=== PATIENT | male | born 1975 | race Caucasian/White ===

== ENCOUNTER 2016-09-06 03:59 | Emergency (ER) | payer SELFPAY | END 2016-09-06 06:50 | disposition home or self-care (01) | LOC: FER 03:59 | DX: S01.81XA Laceration without foreign body of other part of head, initial encounter (principal); F17.210 Nicotine dependence, cigarettes, uncomplicated; W08.XXXA Fall from other furniture, initial encounter; Y92.009 Unspecified place in unspecified non-institutional (private) residence as the place of occurrence of the external cause | CPT/HCPCS: 70450 ==

== ENCOUNTER 2016-11-16 06:30 | Emergency (ER) | payer MEDICARE | END 2016-11-16 07:22 | disposition home or self-care (01) | LOC: FER 06:30 | DX: S01.81XA Laceration without foreign body of other part of head, initial encounter (principal); I10 Essential (primary) hypertension; F17.210 Nicotine dependence, cigarettes, uncomplicated; Z87.820 Personal history of traumatic brain injury; W19.XXXA Unspecified fall, initial encounter ==

== ENCOUNTER 2016-12-03 02:58 | Emergency (ER) | payer MEDICARE ==
[2016-12-03 04:42] LABS: BILIRUBIN 1+ mg/dL (NEGATIVE); BLOOD NEGATIVE Ery/uL (NEGATIVE); CLARITY CLEAR (CLEAR); COLOR YELLOW (YELLOW); GLUCOSE (U) NORMAL (NORMAL); KETONE (U) TRACE mg/dL (NEGATIVE); LEUKOCYTES NEGATIVE Leu/uL (NEGATIVE); NITRITE NEGATIVE (NEGATIVE); PROTEIN NEGATIVE (NEGATIVE); SPECIFIC GRAVITY 1.015 (1.001-1.030); UROBILINOGEN 0.2 mg/dL (0.2-1.0); pH 6.5 (5.0-9.0)
[2016-12-03 05:30] LABS: BASOPHIL 0.2 % (0-2); EOSINOPHIL 2.5 % (0-5); HCT 40.9 % (42.0-52.0); HGB 14.8 g/dl (13.2-18.0); LYMPHOCYTE 19.9 % (15-48); MCH 32.7 pg (25.0-31.0); MCHC 36.2 g/dL (32.0-36.0); MCV 90.5 fL (78.0-100.0); MONOCYTE 7.2 % (0-12); MPV 10.4 fL (6.0-9.5); NEUTROPHIL 70.2 % (41-80); PLT 230 K/uL (150-400); RBC 4.52 M/uL (4.70-6.00); RDW 12.3 % (11.5-14.0); WBC 9.8 K/uL (4.0-10.5)
[2016-12-03 05:43] LABS: ALBUMIN 3.9 g/dL (3.5-5.0); BILIRUBIN - TOTAL 0.8 mg/dL (0.1-1.0); CREATININE 0.6 mg/dL (0.7-1.2); GLOBULIN (CALCULATION) 2.7 g/dL (2.2-4.2); POTASSIUM 3.2 mmol/L (3.5-5.1); TOTAL PROTEIN 6.6 g/dL (6.4-8.3)
== END 2016-12-03 06:17 | disposition home or self-care (01) ==
LOC: FER 02:58
PROVIDERS: Emergency Medicine
DX: I10 Essential (primary) hypertension (principal); F41.9 Anxiety disorder, unspecified; F17.200 Nicotine dependence, unspecified, uncomplicated; Z79.899 Other long term (current) drug therapy
CPT/HCPCS: 36415; 80053; 81003; 82150; 83690; 85025; J1885

== ENCOUNTER 2016-12-05 03:29 | Emergency (ER) | payer MEDICARE ==
[2016-12-05 03:50] LABS: BASOPHIL 0.5 % (0-2); EOSINOPHIL 3.8 % (0-5); HCT 42.2 % (42.0-52.0); HGB 15.2 g/dl (13.2-18.0); MCH 32.5 pg (25.0-31.0); MCV 90.4 fL (78.0-100.0); MONOCYTE 5.1 % (0-12); MPV 10.3 fL (6.0-9.5); NEUTROPHIL 54.6 % (41-80); PLT 272 K/uL (150-400); RBC 4.67 M/uL (4.70-6.00); RDW 12.4 % (11.5-14.0); WBC 8.2 K/uL (4.0-10.5)
[2016-12-05 04:02] LABS: ACETAMINOPHEN (TYLENOL) < 5.0 ug/mL (10.0-30.0); SALICYLATE < 6 ug/mL (0-300)
[2016-12-05 04:03] LABS: ALBUMIN 4.3 g/dL (3.5-5.0); BILIRUBIN - TOTAL 0.4 mg/dL (0.1-1.0); CREATININE 0.8 mg/dL (0.7-1.2); GLOBULIN (CALCULATION) 2.8 g/dL (2.2-4.2); POTASSIUM 3.7 mmol/L (3.5-5.1); TOTAL PROTEIN 7.1 g/dL (6.4-8.3)
[2016-12-05 04:09] LABS: ALCOHOL (ETOH) MEDICAL 238 mg/dL
[2016-12-05 05:10] LABS: BILIRUBIN NEGATIVE (NEGATIVE); BLOOD NEGATIVE Ery/uL (NEGATIVE); CLARITY CLEAR (CLEAR); COLOR YELLOW (YELLOW); GLUCOSE (U) NORMAL (NORMAL); KETONE (U) NEGATIVE (NEGATIVE); LEUKOCYTES NEGATIVE Leu/uL (NEGATIVE); NITRITE NEGATIVE (NEGATIVE); PROTEIN NEGATIVE (NEGATIVE); SPECIFIC GRAVITY <=1.005 (1.001-1.030); UROBILINOGEN 0.2 mg/dL (0.2-1.0)
[2016-12-05 05:15] LABS: AMPHETAMINES NEGATIVE (NEGATIVE); BARBITURATES NEGATIVE (NEGATIVE); BENZODIAZEPINES NEGATIVE (NEGATIVE); COCAINE NEGATIVE (NEGATIVE); MARIJUANA (THC) NEGATIVE (NEGATIVE); METHADONE NEGATIVE (NEGATIVE); TRICYCLIC ANTIDEPRESSANT NEGATIVE (NEGATIVE)
== END 2016-12-05 09:52 ==
LOC: FER 03:29
PROVIDERS: Emergency Medicine
DX: F10.229 Alcohol dependence with intoxication, unspecified (principal); I10 Essential (primary) hypertension; Z79.899 Other long term (current) drug therapy; Y90.7 Blood alcohol level of 200-239 mg/100 ml
CPT/HCPCS: 36415; 80053; 80305; 81003; 85025; G0480

== ENCOUNTER 2020-12-23 23:13 | Emergency (ER) | payer MEDICARE ==
[~2020-12-23 23:13] MED LIST: BENTYL10 MG PO; GLUCOTROL10 MG PO; HUMULIN R100 UNIT/2 SC; LIBRIUM25 MG PO; METFORMIN HCL500 MG PO; MOTRIN600 MG PO; NAPROXEN500 MG PO; OXYCODONE-ACET1 EAC1 PO; PREDNISONE 20MG20 MG PO; PRINIVIL10 MG PO; PRINIVIL20 MG PO; PROZAC20 MG PO; RANITIDINE HCL150 M1 PO; VENTOLIN HFA IN18 GM INH; XANAX0.5 MG PO; XARELTO10 MG PO; ZOFRAN4 MG PO; ZPAK PO
[2020-12-24 00:22] LABS: BASOPHIL 0.3 % (0-2); EOSINOPHIL 1.3 % (0-5); HCT 41.2 % (42.0-52.0); HGB 14.3 g/dl (13.2-18.0); LYMPHOCYTE 29.9 % (15-48); MCH 32.4 pg (25.0-31.0); MCHC 34.7 g/dL (32.0-36.0); MCV 93.2 fL (78.0-100.0); MONOCYTE 4.9 % (0-12); MPV 11.3 fL (6.0-9.5); NEUTROPHIL 63.2 % (41-80); NRBC 0; PLT 233 K/uL (150-400); RBC 4.42 M/uL (4.70-6.00); RDW 13.7 % (11.5-14.0); WBC 7.8 K/uL (4.0-10.5)
[2020-12-24 00:24] LABS: ALBUMIN 3.9 g/dL (3.4-5.0); ALKALINE PHOSHATASE 81 U/L (46-116); ALT 62 U/L (16-63); AMYLASE 46 U/L (25-115); AST 33 U/L (15-37); BILIRUBIN - TOTAL 0.6 mg/dL (0.2-1.0); BUN 14 mg/dL (7-18); BUN/CREAT RATIO (CALC) 25.5 RATIO; CHLORIDE 101 mmol/L (98-107); CO2 (BICARBONATE) 27 mmol/L (21-32); CREATININE 0.55 mg/dL (0.67-1.17); GLOBULIN (CALCULATION) 3.4 g/dL; GLUCOSE 133 mg/dL (74-106); LIPASE 184 U/L (73-393); POTASSIUM 3.8 mmol/L (3.5-5.1); TOTAL PROTEIN 7.3 g/dL (6.4-8.2)
[2020-12-24 00:27] LABS: BILIRUBIN NEGATIVE (NEGATIVE); BLOOD NEGATIVE Ery/uL (NEGATIVE); CLARITY CLEAR (CLEAR); COLOR YELLOW (YELLOW); GLUCOSE (U) 3+ mg/dL (NORMAL); LEUKOCYTES NEGATIVE Leu/uL (NEGATIVE); NITRITE NEGATIVE (NEGATIVE); PROTEIN NEGATIVE (NEGATIVE); UROBILINOGEN 0.2 mg/dL (0.2-1.0)
[2020-12-24 00:34] LABS: MARIJUANA (THC) NEGATIVE (NEGATIVE)
[2020-12-24 00:35] LABS: AMPHETAMINES NEGATIVE (NEGATIVE); BARBITURATES NEGATIVE (NEGATIVE); ECSTASY (MDMA) NEGATIVE (NEGATIVE); METHADONE NEGATIVE (NEGATIVE); OPIATES POSITIVE (NEGATIVE); OXYCODONE NEGATIVE (NEGATIVE)
[2020-12-24 00:40] LABS: LACTIC ACID 0.6 mmol/L (0.4-1.9)
== END 2020-12-24 01:53 | disposition home or self-care (01) ==
LOC: FER 23:13
PROVIDERS: Emergency Medicine Emergency Medical Services
DX: K86.1 Other chronic pancreatitis (principal); K43.9 Ventral hernia without obstruction or gangrene; E11.9 Type 2 diabetes mellitus without complications; I10 Essential (primary) hypertension; F17.210 Nicotine dependence, cigarettes, uncomplicated; Z87.19 Personal history of other diseases of the digestive system
CPT/HCPCS: 36415; 80053; 80305; 81003; 82150; 83605; 83690; 85025; G0480; J7030; Q9967

== ENCOUNTER 2021-02-14 02:42 | Emergency (ER) | payer MEDICARE ==
[2021-02-14] MEDS ORDERED: NORCO 5-325 TA1 EACH PO (05:11)
== END 2021-02-14 05:42 | disposition home or self-care (01) ==
LOC: FER 02:42
DX: S82.002A Unspecified fracture of left patella, initial encounter for closed fracture (principal); F17.200 Nicotine dependence, unspecified, uncomplicated; E11.638 Type 2 diabetes mellitus with other oral complications; I10 Essential (primary) hypertension; Z87.820 Personal history of traumatic brain injury; Z98.890 Other specified postprocedural states; W01.0XXA Fall on same level from slipping, tripping and stumbling without subsequent striking against object, initial encounter; Y92.009 Unspecified place in unspecified non-institutional (private) residence as the place of occurrence of the external cause
CPT/HCPCS: 73564; 96372; J1170; J1885

== ENCOUNTER → 2021-03-28 | Day surgery (SDC) | payer MEDICARE ==
[~2021-03-28] VITALS: Ht 188 cm; Wt 74.8 kg
[~2021-03-28] MED LIST changes: +CINNAMON500 MG PO; +JARDIANCE25 MG PO; +LOVAZA1 GM PO; +MULTIVITAMIN1 EACH PO; +NORCO 5-325 TA1 EACH PO; +PROBIOTIC1 EAC1 PO; +SEROQUEL 100MG100 MG PO; +SUPER B WITH V1 EACH PO; +VITAMIN A10000 UNI1 PO
[2021-03-28 09:43] LABS: CREATININE 0.5 mg/dL (0.67-1.17)
== END | disposition home or self-care (01) ==
LOC: FAS 08:17
PROVIDERS: Anesthesiology
DX: K43.6 Other and unspecified ventral hernia with obstruction, without gangrene (principal); I10 Essential (primary) hypertension; E11.9 Type 2 diabetes mellitus without complications; E78.5 Hyperlipidemia, unspecified; F41.8 Other specified anxiety disorders; F17.210 Nicotine dependence, cigarettes, uncomplicated; Z79.4 Long term (current) use of insulin; Z79.899 Other long term (current) drug therapy
CPT/HCPCS: 36415; 80048; J0690; J2250; J2405; J2704; J3010; J7120